=== PATIENT | male | born 1985 | race African-American/Black ===

== ENCOUNTER 2016-11-04 04:34 | Emergency (ER) | payer SELFPAY ==
[~2016-11-04] VITALS: Ht 190.5 cm; Wt 72.2 kg
[2016-11-04 05:50] VITALS: BP 114/76
== END 2016-11-04 05:50 | disposition home or self-care (01) ==
LOC: EME 04:34
DX: T22.212A Burn of second degree of left forearm, initial encounter (principal); X19.XXXA Contact with other heat and hot substances, initial encounter; F17.200 Nicotine dependence, unspecified, uncomplicated
CPT/HCPCS: 99281; 99283

== ENCOUNTER 2018-02-20 14:32 | Emergency (ER) | payer OTHER ==
[~2018-02-20] VITALS: Ht 190.5 cm; Wt 76.3 kg
[2018-02-20 16:19] LABS: EOSINOPHIL (%) 2.9 % (0-5); EOSINOPHIL COUNT 0.1 K/uL (0-0.3); HEMATOCRIT 40.7 % (38.0-50.0); HEMOGLOBIN 14.3 G/DL (12.5-16.6); LYMPHOCYTE (%) 29.3 % (15-42); LYMPHOCYTE COUNT 1.2 K/uL (1.0-2.8); MCH 31.7 PG (29.0-34.0); MCHC 35.1 G/DL (30.0-36.0); MCV 90.2 FL (86-99); MONOCYTE (%) 11.2 % (3-12); MONOCYTE COUNT 0.5 K/uL (0-0.8); NEUTROPHIL (%) 55.6 % (45-76); NEUTROPHIL COUNT 2.3 K/uL (1.8-6.4); PLATELET COUNT 217 K/uL (156-360); RBC DIS.WIDTH-CV 12.5 % (11.8-14.6); RBC DIS.WIDTH-SD 41.1 % (39-53); RED BLOOD COUNT 4.51 M/uL (4.00-5.50); WHITE BLOOD COUNT 4.1 K/uL (4.1-10.2)
[2018-02-20 16:30] LABS: CHLORIDE 105 mEq/L (99-109); POTASSIUM 4.5 mEq/L (3.7-5.4); SODIUM 139 mEq/L (136-147)
[2018-02-20 16:32] LABS: GLUCOSE 102 mg/dL (70-99)
[2018-02-20 16:35] LABS: SERUM ETHYL ALCOHOL < 10 mg/dL
[2018-02-20 16:36] LABS: CREATININE 1.2 mg/dL (0.6-1.3); GFR ESTIMATE (CALCULATED) > 59 mL/min/ (58.99-99999)
[2018-02-20 16:37] LABS: UREA NITROGEN (BUN) 16 mg/dL (9-23)
[2018-02-20 17:56] LABS: THC CANNABINOIDS NEGATIVE (50 ng/mL)
[2018-02-20 17:57] LABS: AMPHETAMINE NEGATIVE (500 ng/mL); BARBITURATES NEGATIVE (200 ng/mL); BENZODIAZEPINES NEGATIVE (150 ng/mL); BUPRENORPHINE NEGATIVE (10 ng/mL); COCAINE NEGATIVE (150 ng/mL); METHADONE NEGATIVE (200 ng/mL); METHAMPHETAMINE NEGATIVE (500 ng/mL); OPIATES (MORPHINE) NEGATIVE (100 ng/mL); OXYCODONE NEGATIVE (100 ng/mL); PHENCYCLIDINE NEGATIVE (25 ng/mL); PROPOXYPHENE NEGATIVE (300 ng/mL); TRICYCLIC ANTIDEPRESSANTS NEGATIVE (300 ng/mL)
[2018-02-20 18:47] VITALS: BP 121/31
== END 2018-02-20 18:56 | disposition home or self-care (01) ==
LOC: EME 14:32
PROVIDERS: Emergency Medicine
DX: F43.23 Adjustment disorder with mixed anxiety and depressed mood (principal); Z87.891 Personal history of nicotine dependence
CPT/HCPCS: 80048; 85025; 90839; 99281; 99284; G0480